=== PATIENT | male | born 1955 | race African-American/Black ===

== ENCOUNTER 2022-08-12 09:17 | Inpatient (IN) | payer OTHER, MEDICAID ==
[~2022-08-12] VITALS: Ht 170.2 cm; Wt 88.5 kg
[2022-08-12 11:14] LABS: BASOPHILS % 1.5 % (0.0-2.0); HEMATOCRIT. 38.6 % (42.0-52.0); HEMOGLOBIN. 12.3 g/dL (14.0-18.0); LYMPHOCYTES % 19.9 % (20.0-50.0); MEAN CORPUSCULAR HEMOGLOBIN 27.3 pg (28.0-32.0); MEAN CORPUSCULAR VOLUME 85.4 fL (80.0-94.0); MEAN PLATELET VOLUME 8.9 fl (7.4-10.4); MONOCYTES % 7.7 % (2.0-8.0); NEUTROPHILS % 69.9 % (40.0-76.0); PLATELET 222 x1000/uL (130-400); RED BLOOD CELL COUNT 4.52 mill/uL (4.7-6.1); RED CELL DISTRIBUTION WIDTH 16.9 % (11.6-14.6)
[2022-08-12 11:25] LABS: CHLORIDE 106 mEq/L (98-107)
[2022-08-12 11:31] LABS: INR 1.2; PROTHROMBIN TIME 13.2 sec (9.6-11.0)
[2022-08-12] MEDS ORDERED: IOHEXOL-350 100 ML BOTTLE ONE (13:41)
[2022-08-12] MEDS ORDERED: ENOXAPARIN 80MG/0.8ML SYR SUBCUT ONE (13:45)
[2022-08-12] MEDS ORDERED: HYDRALAZINE 20MG/ML VIAL IV ONE (13:45)
[2022-08-12] MEDS ORDERED: ONDANSETRON HCL 4MG/2ML INJ IV PRN (14:00)
[2022-08-12] MEDS ORDERED: ACETAMINOPHEN 325MG TABLET PO PRN (14:00)
[2022-08-12] MEDS: LOSARTAN POTASSIUM 100 MG TABLET PO SCH (14:43)
[2022-08-12] MEDS: AMLODIPINE 5MG TABLET PO SCH ×2 (14:43→21:28)
[2022-08-12] MEDS: FUROSEMIDE 40MG/4ML VIAL IVP SCH ×2 (15:47→22:50)
[2022-08-12] MEDS: CLOPIDOGREL 75MG TABLET PO SCH (15:47)
[2022-08-12 16:37] LABS: CLARITY URINE CLEAR (CLEAR); COLOR URINE YELLOW (YELLOW); KETONES URINE NEGATIVE (NEGATIVE); LEUKOCYTE ESTERASE URINE NEGATIVE (NEGATIVE); NITRITE URINE NEGATIVE (NEGATIVE); OCCULT BLOOD URINE NEGATIVE (NEGATIVE); PH URINE 7.5 (4.5-8.0); PROTEIN URINE 1+ (NEGATIVE); SPECIFIC GRAVITY URINE 1.015 (1.005-1.030)
[2022-08-12 16:52] LABS: *AMPHETAMINES SCREEN URINE NEGATIVE (NEGATIVE); *BARBITURATES SCREEN URINE NEGATIVE (NEGATIVE); *BENZODIAZEPINES SCREEN URINE NEGATIVE (NEGATIVE); *COCAINE SCREEN URINE NEGATIVE (NEGATIVE); CANNABINOID URINE SCREEN NEGATIVE (NEGATIVE); METHADONE URINE SCREEN NEGATIVE (NEGATIVE); OPIATES URINE SCREEN NEGATIVE (NEGATIVE); PHENCYCLIDINE URINE SCREEN NEGATIVE (NEGATIVE)
[2022-08-12 17:21] LABS: CREATINE KINASE MB FRACTION 4.1 ng/mL (0.5-3.6)
[2022-08-12] MEDS: HYDRALAZINE 20MG/ML VIAL IV PRN ×2 (17:33→21:30)
[2022-08-12 20:00] VITALS: BP 182/108
[2022-08-12 20:22] VITALS: BP 182/108
[2022-08-12] MEDS: CARVEDILOL 6.25 MG TABLET PO SCH (21:28)
[2022-08-12] MEDS: ATORVASTATIN CALCIUM 20MG TABLET PO SCH (21:31)
[2022-08-12 22:00] VITALS: BP 151/92
[2022-08-13] VITALS (10 sets, daily range): BP systolic 121–177; BP diastolic 46–110
[2022-08-13 05:56] LABS: CHLORIDE 103 mEq/L (98-107)
[2022-08-13 06:38] LABS: BASOPHILS % 1.3 % (0.0-2.0); EOSINOPHILS % 0.4 % (0.0-5.0); HEMATOCRIT. 43.2 % (42.0-52.0); LYMPHOCYTES % 12.5 % (20.0-50.0); MEAN CORPUSCULAR HEMOGLOBIN 27.6 pg (28.0-32.0); MEAN CORPUSCULAR VOLUME 85.3 fL (80.0-94.0); MEAN PLATELET VOLUME 9.4 fl (7.4-10.4); MONOCYTES % 7.6 % (2.0-8.0); NEUTROPHILS % 78.2 % (40.0-76.0); PLATELET 269 x1000/uL (130-400); RED BLOOD CELL COUNT 5.06 mill/uL (4.7-6.1); RED CELL DISTRIBUTION WIDTH 16.5 % (11.6-14.6)
[2022-08-13] MEDS: FUROSEMIDE 40MG/4ML VIAL IVP SCH ×2 (10:20→17:29)
[2022-08-13] MEDS: ASPIRIN 81MG TABLET PO SCH (10:21)
[2022-08-13] MEDS: LOSARTAN POTASSIUM 100 MG TABLET PO SCH (10:21)
[2022-08-13] MEDS: AMLODIPINE 5MG TABLET PO SCH ×2 (10:21→21:39)
[2022-08-13] MEDS: CARVEDILOL 6.25 MG TABLET PO SCH ×2 (10:21→21:40)
[2022-08-13] MEDS: CLOPIDOGREL 75MG TABLET PO SCH (10:21)
[2022-08-13] MEDS: HYDRALAZINE HCL 50MG TABLET PO SCH ×2 (13:42→21:40)
[2022-08-13] MEDS ORDERED: KCL 20MEQ/100ML PREMIX 100 ML IV NR (14:00)
[2022-08-13] MEDS ORDERED: MAGNESIUM 2 G PREMIX 50 ML IV NR (15:00)
[2022-08-13] MEDS ORDERED: ENOXAPARIN 80MG/0.8ML SYR SUBCUT NR (17:00)
[2022-08-13] MEDS: ATORVASTATIN CALCIUM 20MG TABLET PO SCH (21:36)
[2022-08-13] MEDS: POTASSIUM CHLORIDE 20MEQ TABLET SR PO SCH (21:39)
[2022-08-14] VITALS: BP 127/93
[2022-08-14] MEDS ORDERED: DEXTROSE 50% WATER 50ML SYRINGE IV PRN
[2022-08-14 04:00] VITALS: BP 164/99
[2022-08-14] MEDS: HYDRALAZINE HCL 50MG TABLET PO SCH ×3 (05:11→22:00)
[2022-08-14] MEDS: HYDRALAZINE 20MG/ML VIAL IV PRN (07:01)
[2022-08-14] MEDS: BLOOD SUGAR DIAGNOSTIC STRIP TEST SCH ×4 (07:21→21:00)
[2022-08-14 07:29] LABS: BASOPHILS % 0.9 % (0.0-2.0); EOSINOPHILS % 0.4 % (0.0-5.0); HEMATOCRIT. 45.1 % (42.0-52.0); HEMOGLOBIN. 14.7 g/dL (14.0-18.0); LYMPHOCYTES % 13.1 % (20.0-50.0); MEAN CORPUSCULAR HEMOGLOBIN 27.6 pg (28.0-32.0); MEAN PLATELET VOLUME 9.1 fl (7.4-10.4); MONOCYTES % 7.9 % (2.0-8.0); NEUTROPHILS % 77.7 % (40.0-76.0); PLATELET 292 x1000/uL (130-400); RED BLOOD CELL COUNT 5.31 mill/uL (4.7-6.1); RED CELL DISTRIBUTION WIDTH 17.2 % (11.6-14.6)
[2022-08-14] MEDS ORDERED: NITROGLYCERIN 50MCG/ML 10ML VIAL (CATH LAB) IV ONE (07:32)
[2022-08-14] MEDS ORDERED: NICARDIPINE 100MCG/ML 10ML VIAL (CATH LAB) IV ONE (07:32)
[2022-08-14 07:57] LABS: CHLORIDE 98 mEq/L (98-107)
[2022-08-14 08:00] VITALS: BP 159/61
[2022-08-14] MEDS: INSULIN LISPRO 100 UNITS/ML SUBCUT SCH ×4 (08:00→21:00)
[2022-08-14] MEDS: FUROSEMIDE 40MG/4ML VIAL IVP SCH ×2 (09:05→18:16)
[2022-08-14] MEDS: CLOPIDOGREL 75MG TABLET PO SCH (09:05)
[2022-08-14] MEDS: LOSARTAN POTASSIUM 100 MG TABLET PO SCH (09:05)
[2022-08-14] MEDS: POTASSIUM CHLORIDE 20MEQ TABLET SR PO SCH ×2 (09:05→22:02)
[2022-08-14] MEDS: ASPIRIN 81MG TABLET PO SCH (09:05)
[2022-08-14] MEDS: AMLODIPINE 5MG TABLET PO SCH ×2 (09:05→22:30)
[2022-08-14] MEDS: CARVEDILOL 6.25 MG TABLET PO SCH ×2 (09:06→22:01)
[2022-08-14] MEDS: MAGNESIUM OXIDE 400MG TABLET PO SCH (09:08)
[2022-08-14 12:00] VITALS: BP 152/60
[2022-08-14] MEDS ORDERED: LIDOCAINE HCL/PF 2% 20MG/ML 5 ML/VIAL ONE (12:25)
[2022-08-14] MEDS ORDERED: IODIXANOL 320MG/ML 100 ML BOTTLE IV ONE (12:25)
[2022-08-14] MEDS ORDERED: HEPARIN 1000 UNITS/ML 10ML ONE (12:25)
[2022-08-14] MEDS ORDERED: FENTANYL CITRATE/PF 50MCG/ML 2ML VIAL ONE (13:01)
[2022-08-14] MEDS ORDERED: MIDAZOLAM HCL 2 MG/2 ML VIAL ONE (13:01)
[2022-08-14] MEDS ORDERED: ATROPINE SULFATE 1MG/10ML SYR ONE (13:33)
[2022-08-14] MEDS ORDERED: CLOPIDOGREL 75MG TABLET ONE (13:36)
[2022-08-14] MEDS ORDERED: ACETAMINOPHEN 325MG TABLET PO PRN ×2 (14:00)
[2022-08-14] MEDS ORDERED: ATROPINE SULFATE 1MG/10ML SYR IV PRN ×2 (14:00)
[2022-08-14] MEDS ORDERED: NALOXONE HCL 0.4 MG/ML 1ML VIAL IV NR (16:15)
[2022-08-14] MEDS ORDERED: NALOXONE HCL 0.4 MG/ML 1ML VIAL IV SCH (17:00)
[2022-08-14 17:13] LABS: BG BASE EXCESS 4.3 mmol/L (-2.0-2.0); BG CARBOXYHEMOGLOBIN 1.4 % (0.5-1.5); BG DEOXYHEMOGLOBIN 3.9 % (0.0-5.0); BG HCO3 ACT 32.2 mmol/L (22.0-26.0); BG METHEMOGLOBIN 0.5 % (0.0-1.5); BG OXYHEMOGLOBIN 94.2 % (94.0-97.0); BG PCO2 61.4 mmHg (35.0-45.0); BG PH 7.338 (7.350-7.450); BG SAMPLE SITE LEFT RADIAL; BG VENT MODE NASAL CANNULA
[2022-08-14] MEDS ORDERED: CLOPIDOGREL 75MG TABLET NG NR (18:00)
[2022-08-14] MEDS: SODIUM CHL 0.45% + KCL 20MEQ/L 1,000 ML IV SCH (18:16)
[2022-08-14 20:00] VITALS: BP 134/71
[2022-08-14] MEDS: ATORVASTATIN CALCIUM 20MG TABLET PO SCH (22:01)
[2022-08-15] VITALS (7 sets, daily range): BP systolic 114–192; BP diastolic 66–93
[2022-08-15] MEDS: HYDRALAZINE HCL 50MG TABLET PO SCH ×3 (06:00→22:14)
[2022-08-15 06:45] LABS: BASOPHILS % 0.6 % (0.0-2.0); EOSINOPHILS % 0.5 % (0.0-5.0); HEMATOCRIT. 43.1 % (42.0-52.0); HEMOGLOBIN. 13.8 g/dL (14.0-18.0); LYMPHOCYTES % 12.5 % (20.0-50.0); MEAN CORPUSCULAR HEMOGLOBIN 27.4 pg (28.0-32.0); MEAN CORPUSCULAR VOLUME 85.3 fL (80.0-94.0); MONOCYTES % 8.4 % (2.0-8.0); PLATELET 287 x1000/uL (130-400); RED BLOOD CELL COUNT 5.05 mill/uL (4.7-6.1); RED CELL DISTRIBUTION WIDTH 17.2 % (11.6-14.6)
[2022-08-15] MEDS: BLOOD SUGAR DIAGNOSTIC STRIP TEST SCH ×4 (07:30→22:00)
[2022-08-15] MEDS: INSULIN LISPRO 100 UNITS/ML SUBCUT SCH ×4 (07:37→22:00)
[2022-08-15] MEDS ORDERED: DIGOXIN 500MCG/2ML AMP IV ONE (08:45)
[2022-08-15] MEDS: CLOPIDOGREL 75MG TABLET PO SCH (09:36)
[2022-08-15] MEDS: CARVEDILOL 6.25 MG TABLET PO SCH ×2 (09:36→22:12)
[2022-08-15] MEDS: ASPIRIN 81MG TABLET PO SCH (09:36)
[2022-08-15] MEDS: POTASSIUM CHLORIDE 20MEQ TABLET SR PO SCH ×2 (09:36→22:12)
[2022-08-15] MEDS: AMLODIPINE 5MG TABLET PO SCH ×2 (09:36→22:13)
[2022-08-15] MEDS: FUROSEMIDE 40MG/4ML VIAL IVP SCH ×2 (09:36→17:34)
[2022-08-15] MEDS: LOSARTAN POTASSIUM 100 MG TABLET PO SCH (09:37)
[2022-08-15] MEDS: MAGNESIUM OXIDE 400MG TABLET PO SCH (09:40)
[2022-08-15] MEDS: SODIUM CHL 0.45% + KCL 20MEQ/L 1,000 ML IV SCH ×2 (09:53→22:56)
[2022-08-15] MEDS: ATORVASTATIN CALCIUM 20MG TABLET PO SCH (22:12)
[2022-08-16] VITALS: BP 140/76
[2022-08-16 04:00] VITALS: BP 137/57
[2022-08-16] MEDS: HYDRALAZINE HCL 50MG TABLET PO SCH ×2 (06:06→14:00)
[2022-08-16 06:46] LABS: BASOPHILS % 0.5 % (0.0-2.0); EOSINOPHILS % 1.6 % (0.0-5.0); HEMATOCRIT. 43.2 % (42.0-52.0); HEMOGLOBIN. 13.9 g/dL (14.0-18.0); LYMPHOCYTES % 11.6 % (20.0-50.0); MEAN CORPUSCULAR HEMOGLOBIN 27.5 pg (28.0-32.0); MEAN CORPUSCULAR VOLUME 85.6 fL (80.0-94.0); MONOCYTES % 9.5 % (2.0-8.0); NEUTROPHILS % 76.8 % (40.0-76.0); PLATELET 277 x1000/uL (130-400); RED BLOOD CELL COUNT 5.05 mill/uL (4.7-6.1); RED CELL DISTRIBUTION WIDTH 17.2 % (11.6-14.6)
[2022-08-16] MEDS: BLOOD SUGAR DIAGNOSTIC STRIP TEST SCH ×3 (06:50→16:48)
[2022-08-16 07:07] LABS: CHLORIDE 102 mEq/L (98-107)
[2022-08-16] MEDS: INSULIN LISPRO 100 UNITS/ML SUBCUT SCH ×3 (07:20→16:48)
[2022-08-16 08:00] VITALS: BP 131/65
[2022-08-16] MEDS: FUROSEMIDE 40MG/4ML VIAL IVP SCH ×2 (09:28→16:49)
[2022-08-16] MEDS: ASPIRIN 81MG TABLET PO SCH (09:28)
[2022-08-16] MEDS: MAGNESIUM OXIDE 400MG TABLET PO SCH (09:28)
[2022-08-16] MEDS: AMLODIPINE 5MG TABLET PO SCH (09:29)
[2022-08-16] MEDS: POTASSIUM CHLORIDE 20MEQ TABLET SR PO SCH (09:29)
[2022-08-16] MEDS: CLOPIDOGREL 75MG TABLET PO SCH (09:29)
[2022-08-16] MEDS: LOSARTAN POTASSIUM 100 MG TABLET PO SCH (09:29)
[2022-08-16] MEDS: CARVEDILOL 6.25 MG TABLET PO SCH (09:29)
[2022-08-16] MEDS: SODIUM CHL 0.45% + KCL 20MEQ/L 1,000 ML IV SCH (09:30)
[2022-08-16 12:00] VITALS: BP 121/77
[2022-08-16] MEDS ORDERED: LOSA100T3 PO (13:26)
[2022-08-16] MEDS ORDERED: COR6 PO (13:26)
[2022-08-16] MEDS ORDERED: HYDR-4135 PO (13:26)
[2022-08-16] MEDS ORDERED: CLOP75TA15 PO (13:26)
[2022-08-16] MEDS ORDERED: ATOR20TA PO (13:26)
[2022-08-16] MEDS ORDERED: FURO-151 MT (13:26)
[2022-08-16] MEDS ORDERED: ASPI-1160 PO (13:26)
[2022-08-16] MEDS ORDERED: AMLO5TAB88 PO (13:26)
[2022-08-16 16:00] VITALS: BP 160/106
== END 2022-08-16 18:40 | disposition home or self-care (01) | DRG 246 ==
LOC: ER 09:17 → 5EST 13:44 → EDBEDREQ 13:50 → EDBEDREQTM 13:50 → 3WST 08-15 20:14
PROVIDERS: ADMIT Internal Medicine; ATTEND Internal Medicine
PROC: 027034Z Dilation of Coronary Artery, One Artery with Drug-eluting Intraluminal Device, Percutaneous Approach (ICD-10-PCS; principal; 2022-08-14)
PROC: 4A023N7 Measurement of Cardiac Sampling and Pressure, Left Heart, Percutaneous Approach (ICD-10-PCS; 2022-08-14)
PROC: B211YZZ Fluoroscopy of Multiple Coronary Arteries using Other Contrast (ICD-10-PCS; 2022-08-14)
DX: I21.4 Non-ST elevation (NSTEMI) myocardial infarction (principal); G92.8 Other toxic encephalopathy; E44.1 Mild protein-calorie malnutrition; I11.0 Hypertensive heart disease with heart failure; I16.0 Hypertensive urgency; Z20.822 Contact with and (suspected) exposure to COVID-19; I25.10 Atherosclerotic heart disease of native coronary artery without angina pectoris; E11.51 Type 2 diabetes mellitus with diabetic peripheral angiopathy without gangrene; I50.9 Heart failure, unspecified; E83.42 Hypomagnesemia; F17.210 Nicotine dependence, cigarettes, uncomplicated; E78.5 Hyperlipidemia, unspecified; J44.9 Chronic obstructive pulmonary disease, unspecified; E87.6 Hypokalemia; I25.2 Old myocardial infarction; Z79.899 Other long term (current) drug therapy; Z89.612 Acquired absence of left leg above knee; Z86.73 Personal history of transient ischemic attack (TIA), and cerebral infarction without residual deficits; Z79.82 Long term (current) use of aspirin; Z79.02 Long term (current) use of antithrombotics/antiplatelets; Z79.4 Long term (current) use of insulin
CPT/HCPCS: 36415; 36600; 71045; 71275; 80048; 80053; 80061; 80305; 81003; 82375; 82550; 82553; 82805; 82962; 83735; 84484; 85025; 85347; 87426; 92928; 93005; 93306; 93458; 99291; C1769; C1874; C1887; C1893; C9803; J0360; J0461; J1644; J1650; J1940; J2250; J2310; J2405; J3010; J3475; J3480; J3490; Q9967